=== PATIENT | female | born 1955 | race African-American/Black ===

== ENCOUNTER 2018-06-15 12:18 | Outpatient (RCR) | payer MEDICARE, OTHER | END 2018-07-03 | disposition home or self-care (01) | LOC: WCC 12:18 | DX: I96 Gangrene, not elsewhere classified (principal); I82.601 Acute embolism and thrombosis of unspecified veins of right upper extremity; I10 Essential (primary) hypertension; Z86.73 Personal history of transient ischemic attack (TIA), and cerebral infarction without residual deficits; F32.9 Major depressive disorder, single episode, unspecified; Z87.891 Personal history of nicotine dependence | CPT/HCPCS: G0463 ==